=== PATIENT | male | born 1955 | race Caucasian/White ===

== ENCOUNTER → 2020-05-02 | Outpatient (CLI) | payer MEDICARE, OTHER ==
[~2020-05-02] MED LIST: ALBUTEROL1.25 MG/3 INH; ASPIRIN 325MG325 MG PO; AUGMENTIN 875-1 EACH PO; B-125000 MC1 PO; CELEBREX 200MG200 MG PO; CLONAZEPAM1 MG PO; CRESTOR20 MG PO; LEVAQUIN750 MG PO; LEVOFLOXACIN500 MG PO; OMNICEF 300 MG300 MG PO; OXYCODONE HCL10 MG PO; PREDNISONE 20 M20 MG PO; SPIRIVA RESPIMAT4 GM INH; SYMBICORT 16010.2 GM INH; TIZANIDINE HCL4 MG PO; TOPROL XL25 MG PO; TRAZODONE HCL100 MG PO; VENTOLIN HFA 66.7 GM INH; VIBRAMYCIN 100100 MG PO; VIBRAMYCIN100 MG PO; VITAMIN C500 M1 PO; VITAMIN D350 MCG PO; WELLBUTRIN SR150 MG PO; XYZAL5 MG PO
[2020-05-02 09:40] LABS: HEMOGLOBIN 13.5 gm/dl (14.0-17.5); RED BLOOD COUNT 4.73 M/UL (4.20-5.50); WHITE BLOOD COUNT 7.7 K/UL (4.5-11.0)
[2020-05-02 10:09] LABS: BUN/CREATININE RATIO 10 (0-10)
[2020-05-04 14:12] LABS: CHOLESTEROL, TOTAL 232 mg/dL (100-199); HDL SIZE 9.2 nm (>=9.2); HDL-C 40 mg/dL (>39); HDL-P (TOTAL) 24.8 umol/L (>=30.5); LARGE HDL-P 5.2 umol/L (>=4.8); LDL SIZE 22.1 nm (>20.5); LDL SIZE 22.1 nm (>=20.8); LDL-C 145 mg/dL (0-99); LDL-P 1607 nmol/L (<1000); LP-IR SCORE 55 (<=45); SMALL LDL-P 251 nmol/L (<=527); TRIGLYCERIDES 256 mg/dL (0-149); VLDL SIZE 51.7 nm (<=46.6)
== END ==
LOC: CT 09:00
PROVIDERS: Emergency Medicine
DX: J18.9 Pneumonia, unspecified organism (principal); D69.59 Other secondary thrombocytopenia; E78.2 Mixed hyperlipidemia; F17.218 Nicotine dependence, cigarettes, with other nicotine-induced disorders; F33.1 Major depressive disorder, recurrent, moderate; F41.1 Generalized anxiety disorder; J43.8 Other emphysema; J96.11 Chronic respiratory failure with hypoxia; I10 Essential (primary) hypertension; I25.10 Atherosclerotic heart disease of native coronary artery without angina pectoris
CPT/HCPCS: 36415; 71250; 80053; 80061; 83704; 84550; 85025

== ENCOUNTER → 2020-06-06 | Outpatient (CLI) | payer MEDICARE, OTHER | LOC: KOH-I 10:09 | DX: J44.9 Chronic obstructive pulmonary disease, unspecified (principal) | CPT/HCPCS: 71046 ==

== ENCOUNTER 2020-06-08 15:36 | Emergency (ER) | payer MEDICARE, OTHER ==
[~2020-06-08 15:36] MED LIST changes: -AUGMENTIN 875-1 EACH PO; -VIBRAMYCIN 100100 MG PO
[2020-06-08 16:30] LABS: HEMOGLOBIN 14.9 gm/dl (14.0-17.5); RED BLOOD COUNT 5.02 M/UL (4.20-5.50); WHITE BLOOD COUNT 10.6 K/UL (4.5-11.0)
[2020-06-08 16:56] LABS: BUN/CREATININE RATIO 15 (0-10)
[2020-06-08] MEDS ORDERED: VIBRAMYCIN 100100 MG PO (17:48)
[2020-06-08] MEDS ORDERED: AUGMENTIN 875-1 EACH PO (17:48)
== END 2020-06-08 19:19 | disposition home or self-care (01) ==
LOC: ER1 15:36
PROVIDERS: Emergency Medicine
DX: J18.9 Pneumonia, unspecified organism (principal); R91.1 Solitary pulmonary nodule; Z20.822 Contact with and (suspected) exposure to COVID-19
CPT/HCPCS: 0240U; 71045; 80053; 82550; 82553; 83874; 83880; 84484; 85025; 93005; 99285; J0696; Q9967

== ENCOUNTER → 2020-09-09 | Outpatient (CLI) | payer MEDICARE, OTHER ==
[~2020-09-09] MED LIST changes: +AUGMENTIN 875-1 EACH PO; +VIBRAMYCIN 100100 MG PO
== END ==
LOC: KOH-I 13:27
DX: R91.8 Other nonspecific abnormal finding of lung field (principal); R93.89 Abnormal findings on diagnostic imaging of other specified body structures; J47.9 Bronchiectasis, uncomplicated
CPT/HCPCS: 71250

== ENCOUNTER → 2020-11-13 | Outpatient (CLI) | payer MEDICARE, OTHER | LOC: KOH-I 11:05 | DX: M54.2 Cervicalgia (principal); M47.812 Spondylosis without myelopathy or radiculopathy, cervical region | CPT/HCPCS: 72050 ==

== ENCOUNTER → 2021-02-02 | Outpatient (CLI) | payer MEDICARE, OTHER | LOC: EXRD 11:30 | DX: R07.9 Chest pain, unspecified (principal); R06.02 Shortness of breath; R10.9 Unspecified abdominal pain; K59.00 Constipation, unspecified | CPT/HCPCS: 71046; 74018 ==

== ENCOUNTER → 2021-07-07 | Outpatient (CLI) | payer MEDICARE, OTHER ==
[2021-07-07 17:20] LABS: HEMOGLOBIN 14.3 gm/dl (14.0-17.5); RED BLOOD COUNT 4.8 M/UL (4.20-5.50); WHITE BLOOD COUNT 9.3 K/UL (4.5-11.0)
[2021-07-07 17:49] LABS: BUN/CREATININE RATIO 13 (0-10)
== END ==
LOC: RAD 16:49
PROVIDERS: Nurse Practitioner Family
DX: R07.9 Chest pain, unspecified (principal); R06.02 Shortness of breath; M25.50 Pain in unspecified joint; I10 Essential (primary) hypertension; R20.2 Paresthesia of skin; R41.3 Other amnesia; E53.8 Deficiency of other specified B group vitamins; R91.8 Other nonspecific abnormal finding of lung field
CPT/HCPCS: 36415; 71046; 80053; 82550; 82552; 82607; 83615; 83625; 84439; 84443; 84484; 85025; 85379